=== PATIENT | female | born 1975 | race Caucasian/White ===

== ENCOUNTER → 2020-06-30 09:11 | Outpatient (BNVA) | payer OTHER, SELFPAY | PROVIDERS: Family Provider Family Medicine; Visit Provider Family Medicine | DX: F41.9 Anxiety disorder, unspecified (principal); Z13.6 Encounter for screening for cardiovascular disorders; E78.2 Mixed hyperlipidemia; Z86.39 Personal history of other endocrine, nutritional and metabolic disease; E55.9 Vitamin D deficiency, unspecified; Z01.419 Encounter for gynecological examination (general) (routine) without abnormal findings; R09.81 Nasal congestion; F17.219 Nicotine dependence, cigarettes, with unspecified nicotine-induced disorders | CPT/HCPCS: 80053; 80061; 82306; 85025 ==

== ENCOUNTER 2020-07-07 13:25 | Outpatient (CLI) | payer OTHER, SELFPAY ==
--- NOTE | 2020-07-07 13:30 | MM_ITS ---
WS: [id number] BILATERAL DIGITAL SCREENING MAMMOGRAPHY WITH CAD CLINICAL INFORMATION: SCREENING HISTORY: Screening mammogram. No current complaints. COMPARISON: TECHNIQUE: Bilateral CC and MLO views. FINDINGS: The breasts are composed of heterogeneous fibroglandular density tissue, which can limit the detectio n of small underlying mass lesions. No suspicious mass, asymmetry, calcifications, or architectural d istortion. No evidence of malignancy. A few punctate calcifications. Incidental lymph nodes axillary tail. MM/[id number] IMPRESSION: BI-RADS: 2-Benign FOLLOW UP: 1 Year Follow-up Recommend return to annual screening mammography.
== END 2020-07-07 13:26 | disposition home or self-care (01) ==
LOC: RADSHAW 13:27
PROVIDERS: PCP Family Medicine; Visit Provider Family Medicine
DX: Z12.31 Encounter for screening mammogram for malignant neoplasm of breast (principal)
CPT/HCPCS: 77067

== ENCOUNTER → 2020-09-29 07:46 | Outpatient (BNVA) | payer OTHER, SELFPAY | PROVIDERS: PCP Family Medicine; Visit Provider Family Medicine | DX: Z20.828 Contact with and (suspected) exposure to other viral communicable diseases (principal); R05 Cough | CPT/HCPCS: 87635 ==

== ENCOUNTER 2020-12-05 08:39 | Emergency (ER) | payer OTHER, SELFPAY ==
[2020-12-05 08:52] VITALS: BP 148/88; PULSE 73; RESP 16; TEMP 37.1; O2SAT 97; BMI 29.4
--- NOTE | 2020-12-05 09:20 | ED_ITS ---
HPI - Wound/Laceration General: Chief Complaint: Needlestick/Injury/Exposure Stated Complaint: CUT FINGER ON L HAND Time Seen by Provider: 12/05/20 08:54 History of Present Illness: HPI narrative: 45-year-old female who presents with a fingertip laceration. 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 Microtome caught the fingernail at the lateral edge of the fingernail and the soft tissue just below it. There is no gaping there is no active bleeding. A pathologist in the lab decided to bandage the finger and it is wrapped with packing tape. Patient is unsure of her last tetanus shot Onset (ago): minute(s) Extremity Location: Left: hand (Left 2nd finger) Place: work Patient tetanus UTD: No Context: accidental Associated symptoms: Reports no associated symptoms [facility] ED PFSH: Medical History Anxiety Hyperlipidemia Surgical History H/O tubal ligation H/O: hysterectomy fibroids History of cholecystectomy Family History Other CAD (coronary artery disease) Cancer Hypertension Social History Smoking and tobacco status: current every day smoker cigarettes Packs smoked per day: 0.5 Alcohol intake: current Alcohol intake frequency: few times a week Physical Exam Const: COMMON NORMALS: no acute distress GENERAL APPEARANCE: cooperative and comfortable ORIENTATION/CONSCIOUSNESS: Yes awake, Yes oriented to person, Yes oriented to place and Yes oriented to time HENMT: COMMON NORMALS: normocephalic, atraumatic and hearing grossly normal bilaterally HEAD & SCALP: normocephalic and atraumatic Neck/C-Spine: COMMON NORMALS: no JVD Cardio: COMMON NORMALS: no JVD, regular rate, regular rhythm and No murmurs present (Cardio) RATE: regular rate RHYTHM: regular rhythm Extremity: NARRATIVE EXTREMITY EXAM: Examination the left index finger. Initially remove the packing tape bandage. Underlying there is a partial- thickness avulsion with no remaining tissue. No active bleeding.no gaping of the wound Neuro: SENSORIUM/ORIENTATION: Yes oriented to person, Yes oriented to place and Yes oriented to time Skin: COMMON NORMALS: no rashes or lesions noted GENERAL SKIN EXAM: no rashes or lesions noted Course Vital Signs: Vital signs: Vital Signs Temperature 98.7 F 12/05/20 08:52 Pulse Rate 73 12/05/20 08:52 Respiratory Rate 16 12/05/20 08:52 Blood Pressure 148/88 12/05/20 08:52 Pulse Oximetry 97 12/05/20 08:52 Discharge Plan Discharge Patient Disposition: Home Clinical Impression: Avulsion of skin of finger Condition: Stable Prescriptions: New mupirocin 2 % ointment 1 applic topical DAILY Qty: 15 RF: 0 No Action cholecalciferol (vitamin D3) 50 mcg (2,000 unit) capsule 50 mcg PO DAILY@19 RF: 0 cetirizine-pseudoephedrine [Zyrtec-D] 5-120 mg tablet extended release 12 hr 1 tab PO Q12H PRN (Reason: allergy symptoms) Qty: 30 RF: 0 Prozac 40 mg capsule 40 mg PO DAILY@19 RF: 0 Lipitor 10 mg tablet 10 mg PO DAILY@19 RF: 0 Discharge Orders: Discharge ED (Routine); Ordered 12/05/20 Ordered By: Erik Holland Referrals: Sandie Kan DO [Primary Care Provider] - Discharge Diet: Usual diet Discharge Activity: Resume usual activity Patient Instructions: Needle Stick Injuries (ED), Opioid Safety Activity Restrictions/Additional Instructions: Follow-up with occupational health within a week. Coding Level of Care Code ED Picc Nurse for Rasheeda Almodovar
[2020-12-05] MEDS: tetanus-dipt-pertussis 0.5 mL SDV IM (09:33)
[2020-12-05 11:08] LABS: HIV 1 & 2 Antibody Non-Reactive (Non-Reactiv); HIV 1 & 2 Antigen Non-Reactive (Non-Reactiv)
[2020-12-05 11:28] LABS: Hepatitis C Virus Antibody Non-Reactive (Nonreactive)
[2020-12-05 12:51] LABS: Hepatitis B Surface Antigen Non-Reactive (Nonreactive)
[2020-12-05 12:52] LABS: Hepatitis B Surface AB 28.9 (0-8.5)
== END 2020-12-05 09:35 | disposition home or self-care (01) ==
PROVIDERS: Emergency Provider Family Medicine; PCP Family Medicine
DX: S61.201A Unspecified open wound of left index finger without damage to nail, initial encounter (principal); W26.9XXA Contact with unspecified sharp object(s), initial encounter; Y92.238 Other place in hospital as the place of occurrence of the external cause; Y99.0 Civilian activity done for income or pay; E78.5 Hyperlipidemia, unspecified; F17.210 Nicotine dependence, cigarettes, uncomplicated; Z23 Encounter for immunization
CPT/HCPCS: 36415; 86706; 86803; 87340; 87806; 90471; 90715; 99283

== ENCOUNTER → 2020-12-29 06:00 | Outpatient (BNVA) | payer OTHER, SELFPAY | PROVIDERS: PCP Family Medicine; Visit Provider Emergency Medicine | DX: M25.512 Pain in left shoulder (principal); M77.8 Other enthesopathies, not elsewhere classified; Z68.30 Body mass index [BMI] 30.0-30.9, adult; F17.210 Nicotine dependence, cigarettes, uncomplicated; Z71.89 Other specified counseling; E78.2 Mixed hyperlipidemia | CPT/HCPCS: 36415; 80053; 80061 ==

== ENCOUNTER 2021-06-30 07:01 | Outpatient (CLI) | payer OTHER, SELFPAY ==
[2021-06-30 07:35] LABS: Basophils # 0.1 10^3/uL (0.0-0.1); Basophils % 0.5 %; Eosinophils # 0.1 10^3/uL (0.0-0.8); Eosinophils % 0.6 %; Hematocrit 43.5 % (37.0-47.0); Lymphocytes # 1.9 10^3/uL (0.8-4.8); Lymphocytes % 18.9 %; Mean Corpuscular HGB Conc 32.2 g/dL (30.0-36.0); Mean Corpuscular Hemoglobin 31.9 pg (28.0-34.0); Mean Corpuscular Volume 99.1 fl (81-99); Mean Platelet Volume 10.1 fL (7.4-10.4); Monocytes # 0.5 10^3/uL (0.2-0.9); Monocytes % 5.1 %; Neutrophils # 7.54 10^3/uL (1.8-7.7); Neutrophils % 74.6 %; Nucleated Red Blood Cells % 0 %; Platelet Count 366 10^3/cmm (130-400); Red Blood Count 4.39 10^6/uL (4.1-5.3); Red Cell Distribution Width 12.6 % (12.1-15.1); White Blood Count 10.1 10^3/uL (4.0-10.0)
[2021-06-30 07:48] LABS: Alanine Aminotransferase 16 U/L (0-33); Alkaline Phosphatase 79 IU/L (35-105); Aspartate Amino Transferase 18 U/L (0-32); Blood Urea Nitrogen 10 mg/dL (6-20); Calcium 9.1 mg/dL (8.5-10.5); Carbon Dioxide 26 mmol/L (22-29); Chloride 101 mmol/L (98-107); Cholesterol 235 mg/dL (0-200); Globulin 2.9 g/dL (1.3-4.6); Glomerular Filtration Rate 132.8 mL/min (90-130); Glucose 77 mg/dL (65-115); HDL Cholesterol 49 mg/dL (60-100); LDL Cholesterol Calculated 166 mg/dL (50-129); LDL HDL Ratio 3.39 RATIO (0.00-3.22); Osmolality Calculated 282 mOsm/kg (285-295); Sodium 137 mmol/L (136-145); Total Bilirubin 0.2 mg/dL (0.15-1.2); Total Protein 6.9 g/dL (6.6-8.7); Triglycerides 100 mg/dL (0-150)
== END 2021-06-30 07:02 | disposition home or self-care (01) ==
LOC: LAB 07:06
PROVIDERS: PCP Family Medicine; Visit Provider Family Medicine
DX: E78.2 Mixed hyperlipidemia (principal)
CPT/HCPCS: 36415; 80053; 80061; 85025

== ENCOUNTER 2021-08-26 13:32 | Outpatient (CLI) | payer OTHER, SELFPAY ==
--- NOTE | 2021-08-26 14:00 | MM_ITS ---
WS: [id number] BILATERAL SCREENING DIGITAL MAMMOGRAM WITH CAD HISTORY: screening mammogram COMPARISON: 07/07/2020 and 09/27/2018 Bilateral CC and MLO views submitted. Computer aided detection analyzed. Breast composition: The breasts are heterogeneously dense, which may obscure small masses. No suspici ous masses, microcalcifications or architectural distortion. MM/[id number] IMPRESSION: BI-RADS: 1-Negative FOLLOW UP: 1 Year Follow-up
== END 2021-08-26 13:33 | disposition home or self-care (01) ==
PROVIDERS: PCP Family Medicine; Visit Provider Family Medicine
DX: Z12.31 Encounter for screening mammogram for malignant neoplasm of breast (principal)
CPT/HCPCS: 77067

== ENCOUNTER 2021-11-10 10:15 | Outpatient (CLI) | payer OTHER, SELFPAY ==
[2021-11-10 12:23] LABS: Adenovirus Not Detected (NOT DETECT); Chlamydia Pneumoniae Not Detected (NOT DETECT); Coronavirus 229E,HKU1,NL63,OC4 Not Detected (NOT DETECT); Human Metapneumovirus Not Detected (NOT DETECT); Human Rhinovirus/Enterovirus Not Detected (NOT DETECT); Influenza A Not Detected (NOT DETECT); Influenza A H1 Not Detected (NOT DETECT); Influenza A H1-2009 Not Detected (NOT DETECT); Influenza A H3 Not Detected (NOT DETECT); Influenza B Not Detected (NOT DETECT); Mycoplasma Pneumoniae Not Detected (NOT DETECT); Parainfluenza Virus Type 1 Not Detected (NOT DETECT); Parainfluenza Virus Type 2 Not Detected (NOT DETECT); Parainfluenza Virus Type 3 Not Detected (NOT DETECT); Parainfluenza Virus Type 4 Not Detected (NOT DETECT); Respiratory Syncytial Virus A Not Detected (NOT DETECT); Respiratory Syncytial Virus B Not Detected (NOT DETECT); SARS-COV-2 Not Detected (NOT DETECT)
== END 2021-11-10 10:16 | disposition home or self-care (01) ==
PROVIDERS: PCP Family Medicine; Visit Provider Family Medicine
DX: J06.9 Acute upper respiratory infection, unspecified (principal)
CPT/HCPCS: 87635

== ENCOUNTER → 2021-11-12 10:30 | Outpatient (BNVA) | payer OTHER, SELFPAY | PROVIDERS: PCP Family Medicine; Visit Provider Family Medicine | DX: Z20.828 Contact with and (suspected) exposure to other viral communicable diseases (principal) | CPT/HCPCS: 87635 ==

== ENCOUNTER 2022-01-26 07:15 | Outpatient (CLI) | payer OTHER, SELFPAY ==
[2022-01-26 09:07] LABS: Alanine Aminotransferase 14 U/L (0-33); Albumin Level 4.1 g/dL (3.5-5.2); Alkaline Phosphatase 82 IU/L (35-105); Anion Gap 11.7 (5-19); Aspartate Amino Transferase 16 U/L (0-32); Blood Urea Nitrogen 14 mg/dL (6-20); Calcium 8.3 mg/dL (8.5-10.5); Carbon Dioxide 27 mmol/L (22-29); Chloride 104 mmol/L (98-107); Chol HDL Ratio 5.95 mg/dL (0.0-4.40); Cholesterol 232 mg/dL (0-200); Globulin 2.4 g/dL (1.3-4.6); Glomerular Filtration Rate 90.1 mL/min (90-130); Glucose 87 mg/dL (65-115); HDL Cholesterol 39 mg/dL (60-100); LDL Cholesterol Calculated 174 mg/dL (50-129); LDL HDL Ratio 4.46 RATIO (0.00-3.22); Osmolality Calculated 288 mOsm/kg (285-295); Potassium 3.7 mmol/L (3.5-5.1); Sodium 139 mmol/L (136-145); Total Bilirubin 0.3 mg/dL (0.15-1.2); Total Protein 6.5 g/dL (6.6-8.7); Triglycerides 97 mg/dL (0-150)
== END 2022-01-26 07:16 | disposition home or self-care (01) ==
LOC: LAB 07:16
PROVIDERS: PCP Family Medicine; Visit Provider Family Medicine
DX: E78.2 Mixed hyperlipidemia (principal)
CPT/HCPCS: 80053; 80061

== ENCOUNTER 2022-07-28 07:05 | Outpatient (CLI) | payer OTHER, SELFPAY ==
[2022-07-28 07:36] LABS: Alanine Aminotransferase 22 U/L (0-33); Alkaline Phosphatase 88 U/L (35-105); Anion Gap 16.8 (5-19); Aspartate Amino Transferase 27 U/L (0-32); Blood Urea Nitrogen 10 mg/dL (6-20); Calcium 9.4 mg/dL (8.5-10.5); Carbon Dioxide 24 mmol/L (22-29); Chloride 101 mmol/L (98-107); Chol HDL Ratio 5.79 mg/dL (0.0-4.40); Cholesterol 220 mg/dL (0-200); Globulin 2.6 g/dL (1.3-4.6); Glomerular Filtration Rate 89.7 mL/min (90-130); Glucose 86 mg/dL (65-115); HDL Cholesterol 38 mg/dL (60-100); LDL Cholesterol Calculated 162 mg/dL (50-129); LDL HDL Ratio 4.26 RATIO (0.00-3.22); Osmolality Calculated 282 mOsm/kg (285-295); Potassium 4.8 mmol/L (3.5-5.1); Sodium 137 mmol/L (136-145); Total Bilirubin 0.4 mg/dL (0.15-1.2); Total Protein 6.6 g/dL (6.6-8.7); Triglycerides 102 mg/dL (0-150)
== END 2022-07-28 07:06 | disposition home or self-care (01) ==
LOC: LAB 07:07
PROVIDERS: PCP Family Medicine; Visit Provider Family Medicine
DX: E78.2 Mixed hyperlipidemia (principal)
CPT/HCPCS: 80053; 80061

== ENCOUNTER 2022-09-01 15:04 | Outpatient (CLI) | payer OTHER, SELFPAY ==
--- NOTE | 2022-09-01 15:11 | MM_ITS ---
WS: [id number] BILATERAL 3D TOMOSYNTHESIS DIGITAL SCREENING MAMMOGRAPHY WITH CAD CLINICAL INFORMATION: screening mammogram HISTORY: Screening mammogram. No current complaints. COMPARISON: August 26, 2021 TECHNIQUE: Bilateral CC and MLO views. FINDINGS: The breasts are composed of heterogeneous fibroglandular density tissue, which can limit the detectio n of small underlying mass lesions. No suspicious mass, asymmetry, calcifications, or architectural d istortion. No evidence of malignancy. Stable intramammary lymph node LEFT breast. Vascular calcificat ion. MM/[id number] IMPRESSION: BI-RADS: 2-Benign FOLLOW UP: 1 Year Follow-up Recommend return to annual screening mammography.
== END 2022-09-01 15:05 | disposition home or self-care (01) ==
LOC: RAD 15:05
PROVIDERS: PCP Family Medicine; Visit Provider Family Medicine
DX: Z12.31 Encounter for screening mammogram for malignant neoplasm of breast (principal)
CPT/HCPCS: 77063; 77067

== ENCOUNTER → 2023-02-04 11:29 | Outpatient (BNVA) | payer OTHER, SELFPAY | PROVIDERS: PCP Family Medicine; Visit Provider Family Medicine | DX: E78.5 Hyperlipidemia, unspecified (principal); B07.0 Plantar wart | CPT/HCPCS: 80053 ==

== ENCOUNTER 2023-09-02 14:38 | Outpatient (CLI) | payer OTHER, SELFPAY ==
--- NOTE | 2023-09-02 14:42 | MM_ITS ---
WS: [id number] BILATERAL 3D TOMOSYNTHESIS DIGITAL SCREENING MAMMOGRAPHY WITH CAD CLINICAL INFORMATION: screening HISTORY: Screening mammogram. No current complaints. COMPARISON: 2021 TECHNIQUE: Bilateral CC and MLO views. FINDINGS: Scattered fibroglandular densities bilaterally. No suspicious focal mass, asymmetry, calcifications, or architectural distortion. No evidence of malignancy. IMPRESSION: MM/[id number] BI-RADS: 1-Negative FOLLOW UP: 1 Year Follow-up Recommend return to annual screening mammography.
== END 2023-09-02 14:39 | disposition home or self-care (01) ==
LOC: RAD 14:39
PROVIDERS: PCP Family Medicine; Visit Provider Family Medicine
DX: Z12.31 Encounter for screening mammogram for malignant neoplasm of breast (principal)
CPT/HCPCS: 77063; 77067

== ENCOUNTER 2025-08-05 07:07 | Outpatient (CLI) | payer OTHER, SELFPAY ==
[2025-08-05 07:26] LABS: Hematocrit 43.3 % (36-47); Hemoglobin 13.90 g/dL (11.27-16.99); Mean Corpuscular HGB Conc 32.1 g/dL (30-55); Mean Corpuscular Hemoglobin 30.8 pg (27-33); Mean Corpuscular Volume 95.8 fl (85-98); Nucleated Red Blood Cells % 0 %; Platelet Count 413 10^3/cmm (157-399); Red Blood Count 4.52 10^6/uL (3.85-5.65); White Blood Count 11.15 10^3/uL (3.29-11.43)
[2025-08-05 07:48] LABS: Alanine Aminotransferase 18 U/L (0-33); Albumin Level 4.0 g/dL (3.5-5.2); Alkaline Phosphatase 90 U/L (35-105); Anion Gap 13.0 (5-19); Aspartate Amino Transferase 15 U/L (0-32); Blood Urea Nitrogen 8 mg/dL (6-20); Calcium 9.1 mg/dL (8.5-10.5); Carbon Dioxide 27 mmol/L (22-29); Chloride 103 mmol/L (98-107); Cholesterol 308 mg/dL (0-200); Globulin 3.1 g/dL (1.3-4.6); Glucose 93 mg/dL (65-115); HDL Cholesterol 38 mg/dL (60-100); Osmolality Calculated 286 mOsm/kg (285-295); Potassium 4.0 mmol/L (3.5-5.1); Sodium 139 mmol/L (136-145); Total Protein 7.1 g/dL (6.6-8.7); Triglycerides 162 mg/dL (0-150)
== END 2025-08-05 07:08 | disposition home or self-care (01) ==
PROVIDERS: PCP Family Medicine; Visit Provider Family Medicine
DX: E78.2 Mixed hyperlipidemia (principal)
CPT/HCPCS: 80053; 80061; 85025

== ENCOUNTER 2025-08-07 13:29 | Outpatient (CLI) | payer OTHER, SELFPAY ==
--- NOTE | 2025-08-07 13:20 | MM_ITS ---
WS: [id number] BILATERAL 3D TOMOSYNTHESIS DIGITAL SCREENING MAMMOGRAPHY WITH CAD CLINICAL INFORMATION: screening HISTORY: Screening mammogram. No current complaints. COMPARISON: 2022 TECHNIQUE: Bilateral CC and MLO views. FINDINGS: Scattered fibroglandular densities bilaterally. Small increasing asymmetric density outer LEFT breast measuring 4 mm. This localizes to the lower outer quadrant on the tomographic views. Recommend LEFT breast diagnostic mammography and ultrasound if persistent. Unremarkable RIGHT breast MM/MM scr tomosynthesis [id number] IMPRESSION: DENSITY: There are scattered areas of fibroglandular density. BI-RADS: 0 - Incomplete: Need additional imaging evaluation. FOLLOW UP: Need Additional Imaging Recommend LEFT breast diagnostic mammography and ultrasound if persistent.
== END 2025-08-07 13:30 | disposition home or self-care (01) ==
LOC: RAD 13:30
PROVIDERS: PCP Family Medicine; Visit Provider Family Medicine
DX: Z12.31 Encounter for screening mammogram for malignant neoplasm of breast (principal); R92.323 Mammographic fibroglandular density, bilateral breasts; N64.89 Other specified disorders of breast
CPT/HCPCS: 77063; 77067